=== PATIENT | male | born 1955 | race Caucasian/White ===

== ENCOUNTER 2017-09-01 10:18 | Inpatient (IN) | payer BC ==
[~2017-09-01] VITALS: Ht 185.4 cm; Wt 93.0 kg
--- NOTE | 2017-09-01 10:20 | NUR ---
PATIENT TO ED DT RT HAND LACERATION S/P TRIPPED AND FELL WHILE HOLDING A METAL SHEET. PATIENT DENIES HITTING HEAD. TRIGHT HAND NOTED WITH LAC WITH BLEEDING ABOUT 2.5 INCH LONG, PATIENT IS AWAKE AND ALERT. APPEARS IN NO DISTRSS. PATIENT ABLE TO MOVE ALL FINGERS. VSS.
[2017-09-01] MEDS ORDERED: LIDOCAINE HCL/PF 1% 30 ML VIAL TP ONE (10:30)
[2017-09-01] MEDS ORDERED: TDAP [DIPH/PERTUSSIS/TET] 0.5 ML VIAL IM ONE ×2 (10:30→10:32)
[2017-09-01] MEDS ORDERED: SULFAMETH/TRIMETH 800/160 MG 1 UDTAB TABLET PO ONE ×2 (10:30→10:32)
[2017-09-01] MEDS ORDERED: LIDOCAINE HCL/MPF 1% 30 ML VIAL IJ ONE (10:32)
--- NOTE | 2017-09-01 10:42 | NUR ---
MD MARTIN AT BEDSIDE FOR WOUND PROCEDURE
[2017-09-01] MEDS ORDERED: PARO20TA7 PO (12:40)
--- NOTE | 2017-09-01 12:52 | NUR ---
PATIENT REFUSED XRAY
[2017-09-01 13:10] LABS: BASOPHILS # (AUTO) 0.4 /CMM (0.0-0.2); BASOPHILS % (AUTO) 4.3 % (0.0-2.0); EOSINOPHILS % (AUTO) 0.5 % (0.0-6.0); HEMATOCRIT 45 % (39-51); HEMOGLOBIN 15.2 g/dL (13.5-17.5); LYMPHOCYTES # (AUTO) 0.9 /CMM (0.8-4.8); LYMPHOCYTES % (AUTO) 9.4 % (20.0-44.0); MEAN CORPUSCULAR HEMOGLOBIN 30 PG (26.0-33.0); MEAN CORPUSCULAR HGB CONC 34 g/dl (31.0-36.0); MEAN CORPUSCULAR VOLUME 87 fL (80-96); MONOCYTES # (AUTO) 0.3 /CMM (0.1-1.30); MONOCYTES % (AUTO) 3.2 % (2.0-12.0); NEUTROPHILS # (AUTO) 7.7 /CMM (1.8-8.9); NEUTROPHILS % (AUTO) 82.6 % (43.0-81.0); PLATELET COUNT (AUTO) 279 /CMM (150-450); RDW COEFFICIENT OF VARIATION 12.1 (11.5-15.0); RED BLOOD CELL COUNT(AUTO) 5.11 MIL/uL (4.5-6.0); WHITE BLOOD COUNT (AUTO) 9.3 K/uL (4.3-11.0)
[2017-09-01 13:15] LABS: CALCIUM, SERUM 8.9 mg/dL (8.5-10.1); POTASSIUM 4.3 mmol/L (3.5-5.1)
[2017-09-01] MEDS ORDERED: ANESTHESIA TRAY IN PYXIS 1 EA TRAY MC ONE (13:16)
[2017-09-01 13:18] LABS: INR 0.91 (0.85-1.15)
[2017-09-01] MEDS ORDERED: BUPIVACAINE 0.5 % PF 150 MG/30 ML VIAL ONE (13:26)
[2017-09-01] MEDS ORDERED: LIDOCAINE 1%-EPI 1:100,000 20 ML VIAL ONE (13:32)
--- NOTE | 2017-09-01 13:42 | NUR ---
PATIENT ASSIGNED TO [id number]
[2017-09-01] MEDS ORDERED: ROCURONIUM BROMIDE 50 MG/5 ML ONE (13:49)
[2017-09-01] MEDS ORDERED: MIDAZOLAM HCL 2 MG/2ML VIAL ONE (13:49)
[2017-09-01] MEDS ORDERED: FENTANYL PF 100MCG/2ML AMPUL ONE (13:49)
--- NOTE | 2017-09-01 13:55 | NUR ---
PATIENT WAS PICKED UP BY OR NURSES,. VSS
[2017-09-01] MEDS ORDERED: CLINDAMYCIN 900 MG/6 ML VIAL ONE (14:02)
[2017-09-01] MEDS ORDERED: IV D5/0.45 NACL 1,000 ML IV PRN (15:29)
[2017-09-01] MEDS ORDERED: ZOLPIDEM TARTRATE 5 MG TABLET PO PRN (15:30)
[2017-09-01] MEDS ORDERED: ONDANSETRON HCL/PF 4 MG/2 ML VIAL IVP PRN (15:30)
[2017-09-01] MEDS ORDERED: HYDROCODONE/APAP 5/325MG 1 EACH TABLET PO PRN (15:30)
[2017-09-01] MEDS ORDERED: MAG HYDROX/AL HYDROX/SIMETH 30 ML UDC PO PRN (15:30)
[2017-09-01] MEDS ORDERED: MAGNESIUM HYDROXIDE 30 ML UDC PO PRN (15:30)
[2017-09-01] MEDS ORDERED: Z GUARD REMEDY 2 OZ OINT TP PRN (15:30)
[2017-09-01] MEDS ORDERED: ACETAMINOPHEN 325 MG TABLET PO PRN (15:30)
[2017-09-01] MEDS ORDERED: FEE PK DOSING 1 MIN EA MC ONE (16:16)
[2017-09-01 17:00] VITALS: BP 130/89
[2017-09-01] MEDS ORDERED: LEVOFLOXACIN 750 MG /D5W 150ML 750 MG in PREMIX 1 EA IV SCH (17:00)
--- NOTE | 2017-09-01 17:00 | NUR ---
RN NOTES: PATIENT ARRIVED FROM OR POST REPAIR OF RIGHT HAND MUSCLES AND NERVE. PATIENT AOX4. NONLABORED BREATHING NOTED ON ROOM AIR. IV SITE ON LEFT ARM GAUGE 20 PATENT AND INTACT. PATIENT ABLE TO WIGGLE FINGERS ON RIGHT HAND. CAPILLARY REFILL LESS THAN 3 SECONDS. NO EDEMA NOTED. PATIENT DENYING LOSS OF SENSATION ON RIGHT HAND. PATIENT DENYING PAIN AT THE MOMENT. BED IN LOWEST LOCKED POSITION. CALL LIGHT WITHIN REACH. WILL CONTINUE TO MONITOR.
[2017-09-01 17:15] VITALS: BP 149/94
[2017-09-01 17:30] VITALS: BP 130/82
--- NOTE | 2017-09-01 17:30 | NUR ---
RN NOTES: PATIENT REFUSING SKIN ASSESSMENT AND DENYING ANY WOUNDS. BENEFITS AND RISKS EXPLAINED AT LENGTH. PATIENT STILL REFUSING
--- NOTE | 2017-09-01 17:40 | NUR ---
RN NOTES: PER DR CORMIER, KEEP RIGHT HAND ELEVATED , WEAR SLING WHEN UP FOLLOW UP WITH DR CORMIER LATER THIS WEEK
[2017-09-01 18:00] VITALS: BP 157/95
--- NOTE | 2017-09-01 19:40 | NUR ---
RN NOTES: PATIENT AOX4. NONLABORED BREATHING NOTED ON ROOM AIR. IV SITE ON LEFT ARM GAUGE 20 PATENT AND INTACT. PATIENT ABLE TO WIGGLE FINGERS ON RIGHT HAND. CAPILLARY REFILL LESS THAN 3 SECONDS. NO EDEMA NOTED. PATIENT DENYING LOSS OF SENSATION ON RIGHT HAND. PATIENT DENYING PAIN AT THE MOMENT. BED IN LOWEST LOCKED POSITION. CALL LIGHT WITHIN REACH. PATIENT EDUCATED ON KEEPING ARM UP AND WEARING SLING WHEN UP, VERBALIZED UNDERSTANDING. PATIENT EDUCATED ON USING THE INCENTIVE SPIROMETER, PATIENT ABLE TO DO THE DEMONSTRATION. PATIENT ABLE TO TOLERATE DINNER, NO NAUSEA AND NO VOMITTING. PATIENT PROVIDED WITH A URINAL, STATES WILL GO TO BATHROOM IN A BIT. SPOKE TO SHAYNE FROM PHARMACY, WILL BE PROVIDING VANCO AND LEVAQUIN. ANTIBIOTICS NOT DELIVERED YET. ANTIBIOTICS TO BE ADMINISTERED DURING COMPENSATION COORDINATOR. ENDORSED TO [place].
[2017-09-01 20:00] VITALS: BP 132/82
--- NOTE | 2017-09-01 20:00 | NUR ---
MS JIM INITIAL NOTES RECEIVED PT IN BED AWAKE AND ALERT SITTING AT THIS TIME WHILE WATCHING TV. AND EATING HIS DINNER . DENIES ANY PAIN OR ANY DISCOMFORT. PT AWARE THAT HE NEEDS HIS RIGHT ARM TO BE UP POSITION ALL THE TIME. IVF D51/2 NS INFUSING AT TIME. KEPT HIM WARM AND COMFORTABLE AT ALL TIMES. PLACE CALL LIGHT AT REACH. ENCOURAGE HIM TO USE THE CALL LIGHT IF HE NEEDS SOME HELP. WILL CONTINUE MONITORING.
[2017-09-01] MEDS: VANCOMYCIN 1.25 GM in IV NS 0.9% 500 ML IV SCH (21:39)
--- NOTE | 2017-09-02 | NUR ---
MS JIM NOTES PT SLEEPING AT THIS TIME , NO SIGNS OF ANY DISCOMFORT NOTED. IVF STILL INFUSING. KEPT HIM WARM AND COMFORTABLE AT ALL TIMES. WILL CONTINUE TO MONITOR.PLACE CALL LIGHT AT REACH.
[2017-09-02 03:54] LABS: APPEARANCE,URINE CLEAR (CLEAR); BILIRUBIN,URINE NEGATIVE (NEGATIVE); BLOOD, URINE NEGATIVE Ery/uL (NEGATIVE); COLOR,URINE YELLOW (YELLOW); KETONES,URINE NEGATIVE (NEGATIVE); LEUKOCYTE ESTERASE ,URINE NEGATIVE (NEGATIVE); NITRITE, URINE NEGATIVE (NEGATIVE); PH,URINE 6.5 (5.0-8.0); PROTEIN,URINE NEGATIVE (NEGATIVE); UGLUCOSE NEGATIVE (NEGATIVE); UROBILINOGEN,URINE 0.2 EU/dL (0.2)
--- NOTE | 2017-09-02 05:37 | NUR ---
MS JIM NOTES' VANCOMYCIN IVP BAG NOT HUNG AT THIS TIME BECAUSE ORDERED Q 12 HRS AND 1ST VANCO HUNG AROUND 0. CHARGE NURSE STEELE AWARE AND VERIFIED TO HER . WILL ENDORSE TO AM NURSE TO INFUSED BY 930 AM.
--- NOTE | 2017-09-02 07:00 | NUR ---
IT ARCHITECT/CLOSING NOTES PT BACK TO REST , STABLE LENA THE NIGHT AND SLEPT WELL. IVF D5/1/2 NS STILL INFUSING AT 75ML/HR ORDERED. KEPT HIM WARM AND COMFORTABLE AT ALL TIMES. ENDORSE TO AM NURSE FOR CONTINUITY OF CARE.
--- NOTE | 2017-09-02 07:25 | NUR ---
ms rn initial notes Received patient in bed, awake, head of bed elevated, no SOB or distress noted, on room air and tolerated well. Alert and oriented x 4, verbally responsive and able to make needs known. Kept patient clean and comfortable in bed, call light with in patient reach, will continue to monitor accordingly.
[2017-09-02] MEDS ORDERED: PANTOPRAZOLE 40 MG TABLET.DR PO SCH (07:30)
[2017-09-02 07:43] LABS: CREATINE KINASE MB 1.1 ng/mL (0-3.6)
[2017-09-02 07:52] LABS: ALBUMIN 3.1 g/dL (3.4-5.0); BILIRUBIN,TOTAL 0.5 mg/dL (0.2-1.0); CALCIUM, SERUM 8.6 mg/dL (8.5-10.1); CREATININE 1.1 mg/dL (0.6-1.3); MAGNESIUM 1.9 mg/dL (1.8-2.4); PHOSPHORUS 4.1 mg/dL (2.5-4.9); POTASSIUM 4.2 mmol/L (3.5-5.1); TOTAL PROTEIN, SERUM 6.6 g/dL (6.4-8.2)
[2017-09-02 07:54] LABS: BASOPHILS % (AUTO) 0.3 % (0.0-2.0); EOSINOPHILS % (AUTO) 0.4 % (0.0-6.0); HEMATOCRIT 41 % (39-51); LYMPHOCYTES # (AUTO) 1.2 /CMM (0.8-4.8); LYMPHOCYTES % (AUTO) 13.3 % (20.0-44.0); MEAN CORPUSCULAR HEMOGLOBIN 30 PG (26.0-33.0); MEAN CORPUSCULAR HGB CONC 34 g/dl (31.0-36.0); MEAN CORPUSCULAR VOLUME 89 fL (80-96); MONOCYTES # (AUTO) 0.5 /CMM (0.1-1.30); MONOCYTES % (AUTO) 5.6 % (2.0-12.0); NEUTROPHILS # (AUTO) 7.6 /CMM (1.8-8.9); NEUTROPHILS % (AUTO) 80.4 % (43.0-81.0); PLATELET COUNT (AUTO) 236 /CMM (150-450); RDW COEFFICIENT OF VARIATION 13.2 (11.5-15.0); RED BLOOD CELL COUNT(AUTO) 4.62 MIL/uL (4.5-6.0); WHITE BLOOD COUNT (AUTO) 9.4 K/uL (4.3-11.0)
[2017-09-02 08:00] VITALS: BP 133/77
[2017-09-02] MEDS: VANCOMYCIN 1.25 GM in IV NS 0.9% 500 ML IV SCH (08:08)
[2017-09-02] MEDS ORDERED: SULF1TAB48 PO (13:21)
--- NOTE | 2017-09-02 14:00 | NUR ---
MS DRYING CAN WORKER NOTES discharge instructions given to patient and able to understand instruction. discharge paper and belongings list, and prescription given. Pneumonia and flu vaccine not given due to refusal, explained the risk and benefits x 3 and still refused. Skin intact. no complaint of pain or discomfort noted, nor chest pain. Patient left in stable condition via ambulatory accompanied by RN assigned. Health teaching and education rendered. Informed about to follow up with Dr. Carreon in [address] francois. and charge nurse aware.
== END 2017-09-02 14:04 | disposition home or self-care (01) | DRG 41 ==
LOC: ER 10:23 → MEDSG1 14:10 → MED 17:20
PROVIDERS: ADMIT Internal Medicine; ATTEND Internal Medicine
PROC: 01Q40ZZ Repair Ulnar Nerve, Open Approach (ICD-10-PCS; principal; 2017-09-01 14:16)
PROC: 0KQC0ZZ Repair Right Hand Muscle, Open Approach (ICD-10-PCS; principal; 2017-09-01 14:16)
PROC: 3E0T3BZ Introduction of Anesthetic Agent into Peripheral Nerves and Plexi, Percutaneous Approach (ICD-10-PCS; principal; 2017-09-01 14:16)
PROC: 03L90ZZ Occlusion of Right Ulnar Artery, Open Approach (ICD-10-PCS; principal; 2017-09-01 14:16)
PROC: 0XQJ0ZZ Repair Right Hand, Open Approach (ICD-10-PCS; principal; 2017-09-01 14:16)
DX: S64.496A Injury of digital nerve of right little finger, initial encounter (principal); S65.011A Laceration of ulnar artery at wrist and hand level of right arm, initial encounter; F32.9 Major depressive disorder, single episode, unspecified; S66.821A Laceration of other specified muscles, fascia and tendons at wrist and hand level, right hand, initial encounter; S61.411A Laceration without foreign body of right hand, initial encounter; X58.XXXA Exposure to other specified factors, initial encounter; Y92.009 Unspecified place in unspecified non-institutional (private) residence as the place of occurrence of the external cause; Y93.89 Activity, other specified; Z88.0 Allergy status to penicillin
CPT/HCPCS: 36415; 71045-TC; 73130-TC; 80048-TC; 80053-TC; 80061-TC; 81000-TC; 82553-TC; 83735-TC; 84100-TC; 85025-TC; 85730-TC; 87081-TC; 87086-TC; 90715; A4216; A6402; A6403; J1956; J2250; J3010; J3370; J3490; J7030; J7040; Z7610

== ENCOUNTER → 2017-09-04 | Outpatient (CLI) | payer BC ==
[~2017-09-04] MED LIST: PARO20TA7 PO; SULF1TAB48 PO
== END | disposition home or self-care (01) ==
LOC: WOU 12:30
PROVIDERS: ATTEND Surgery
DX: S61.411D Laceration without foreign body of right hand, subsequent encounter (principal); S64.01XD Injury of ulnar nerve at wrist and hand level of right arm, subsequent encounter; W45.8XXD Other foreign body or object entering through skin, subsequent encounter; E78.5 Hyperlipidemia, unspecified
CPT/HCPCS: 99215; A6402 ×2; G0463

== ENCOUNTER 2017-09-11 12:30 | Outpatient (CLI) | payer BC | END 2017-09-11 23:59 | disposition home or self-care (01) | LOC: WOU 12:30 | PROVIDERS: ATTEND Surgery | DX: S61.411D Laceration without foreign body of right hand, subsequent encounter (principal); W26.8XXD Contact with other sharp object(s), not elsewhere classified, subsequent encounter; S64.496D Injury of digital nerve of right little finger, subsequent encounter; E78.5 Hyperlipidemia, unspecified | CPT/HCPCS: 99213; A6402; G0463 ==